=== PATIENT | female | born 1965 | race African-American/Black ===

== ENCOUNTER 2018-07-20 21:36 | Emergency (ER) | payer SELFPAY ==
[2018-07-20] MEDS ORDERED: Ibuprofen 800 MG TAB ONE (22:15)
--- NOTE | 2018-07-20 22:43 | RAD ---
TWO VIEWS OF THE LEFT FOREARM: 07/20/18 HISTORY: Left forearm injury. FINDINGS: There is no evidence of a fracture although there does appear to be slight irregularity involving the scaphoid bone, but this may be projectional in origin. No dislocation or other osseous abnormality i s seen. IMPRESSION: 1. Irregularity involving the scaphoid bone which is probably projectional, but if there is pain localized to the scaphoid bone, dedicated views of the left wrist are recommended. 2. No fracture or dislocation seen involving the left forearm. POS: [facility]
== END 2018-07-20 23:13 | disposition home or self-care (01) ==
LOC: ERS 21:36
DX: S63.502A Unspecified sprain of left wrist, initial encounter (principal); I10 Essential (primary) hypertension; F41.9 Anxiety disorder, unspecified; Z79.899 Other long term (current) drug therapy; W19.XXXA Unspecified fall, initial encounter

== ENCOUNTER 2019-11-02 09:08 | Outpatient (CLI) | payer OTHER ==
--- NOTE | 2019-11-02 13:38 | RAD ---
RADIOGRAPH LUMBAR SPINE 3 VIEWS: DATE: 11/02/2019 HISTORY: 54-year-old female with low back pain COMPARISON: None available FINDINGS: 3 lateral views in neutral, flexion, and extension. It will be assumed that there are 5 lumbar-type vertebrae. Greatest lordotic angulation is at L3-4 le jorge, where there is narrowing of the posterior aspect of the disc space but not the anterior aspect. Very mild grade 1 anterolisthesis of L4 on L5 during flexion and neutral, which reduces upon extension. Facet DJD at lower levels. No severe disc space narrowing at any level. IMPRESSION: 1) facet osteoarthrosis at lower levels. 2) very mild, minimally unstable grade 1 spondylolisthesis at L4-5. 3) the fulcrum of motion and greatest lordotic angulation, is at L3-4.
--- NOTE | 2019-11-02 14:25 | RAD ---
CERVICAL SPINE 4 VIEWS: Date: 11/02/19 HISTORY: Cervical radicular pain, flexion and extension. FINDINGS: 4 views of the cervical spine, including flexion and extension and standing lateral views are perform ed. T1 is somewhat obscured. Prominent anterior disc osteophytes at C4-C5, C5-C6, and C6-C7. No evide nce for abnormal malalignment. No abnormal translation between flexion and extension. No prevertebral soft tissue swelling. IMPRESSION: Extensive spondylosis, particularly at C4 through C6. POS: [facility]
== END 2019-11-02 09:09 | disposition home or self-care (01) ==
LOC: RAD 09:08
PROVIDERS: ATTEND Nurse Practitioner Family
DX: M47.22 Other spondylosis with radiculopathy, cervical region (principal); M54.5 Low back pain; M16.9 Osteoarthritis of hip, unspecified; M43.16 Spondylolisthesis, lumbar region
CPT/HCPCS: 72040; 72100

== ENCOUNTER 2021-11-23 15:36 | Emergency (ER) | payer OTHER ==
[2021-11-23 17:16] LABS: Bilirubin Negative (Negative); Blood, Urine 1+ (Negative); Clarity Turbid (Clear); Glucose, Urine (Dipstick) 70 mg/dL (Negative); Ketone, Urine Negative (Negative); Leukocyte 500 Leu/uL (Negative); Nitrite Negative (Negative); Protein, Urine (Dipstick) 30 mg/dL (Neg-Trace); Specific Gravity, Urine 1.022 (1.002-1.036); Squamous Epithelial 0-3 HPF (0-3); pH, Urine 5.5 (5.0-9.0)
[2021-11-23 17:30] LABS: WBC/HPF 21-50 HPF (0-3)
[2021-11-23 17:31] LABS: Bacteria/HPF 2+ HPF (None Seen); Calcium Oxalate Crystals 1+ HPF (None Seen); Yeast-Budding None Seen HPF (None Seen)
[2021-11-23 23:17] LABS: SARS-CoV-2 PCR by NAA Not Detected (NotDetected)
== END 2021-11-23 17:45 | disposition home or self-care (01) ==
LOC: ERS 15:36
DX: N30.01 Acute cystitis with hematuria (principal); Z20.822 Contact with and (suspected) exposure to COVID-19; I10 Essential (primary) hypertension
CPT/HCPCS: 81003; 81015; 87086; 99284; U0003; U0005

== ENCOUNTER 2023-02-13 22:03 | Inpatient (IN) | payer OTHER ==
[2023-02-14 00:25] LABS: Hemoglobin 13.7 g/dL (12.0-16.0); Mean Corpuscular HGB CONC 33.4 g/dL (32.0-36.0); Mean Corpuscular Hemoglobin 32.2 pg (27.0-31.0); Mean Corpuscular Volume 96.5 fl (78.0-98.0); Mean Platelet Volume 8.6 fL (7.4-10.4); Platelet Count 206 10x3/uL (130-400); RBC Distribution Width 11.7 % (11.5-14.5); Red Blood Cell (RBC) Count 4.26 mill/uL (4.20-5.40); White Blood Cell (WBC) Count 6.9 10x3/uL (4.8-10.8)
[2023-02-14 00:34] LABS: Eosinophils 1 % (0-10); Lymphocytes 56 % (21-51); MDiff Complete? YES; Monocytes 10 % (0-10); Neutrophil 33 % (42-75); Platelet Morphology Comment Appears Adequate; RBC Morphology Normal
[2023-02-14 00:35] LABS: ALT (SGPT) 10 U/L (8-55); AST (SGOT) 12 U/L (5-34); Albumin 4.1 g/dL (3.5-5.0); Alkaline Phosphatase 146 U/L (40-110); Anion Gap 10 mmol/L (10-20); BUN (Urea Nitrogen) 13 mg/dL (9.8-20.1); Bilirubin, Total 0.4 mg/dL (0.2-1.2); Calc. Creatinine Clearance 0 mL/min (70-130); Carbon Dioxide 27 mmol/L (22-29); Chloride 105 mmol/L (98-107); Estimated GFR 55; Globulin 3.2 g/dL (2.4-3.5); Glucose 207 mg/dL (70-105); Lipase 17 U/L (8-78); Magnesium 1.6 mg/dL (1.6-2.6); Potassium 3.3 mmol/L (3.5-5.1); Protein, Total 7.3 g/dL (6.0-8.3); Sodium 139 mmol/L (136-145)
[2023-02-14 00:43] LABS: Calcium 13.9 mg/dL (7.8-10.44)
[2023-02-14 02:42] LABS: Bilirubin Negative (Negative); Blood, Urine 1+ (Negative); Clarity Clear (Clear); Glucose, Urine (Dipstick) 150 mg/dL (Negative); Ketone, Urine Negative (Negative); Leukocyte 250 Leu/uL (Negative); Nitrite Negative (Negative); Protein, Urine (Dipstick) 10 mg/dL (Neg-Trace); Specific Gravity, Urine 1.048 (1.002-1.036); Urobilinogen Normal mg/dL (Less than 2)
[2023-02-14 02:54] LABS: Bacteria/HPF Rare-Few HPF (None Seen); RBC/HPF 0-3 HPF (0-3); Squamous Epithelial 0-3 HPF (0-3); WBC/HPF 0-3 HPF (0-3)
[2023-02-14] MEDS ORDERED: Calcitonin,Salmon,Synthetic 400 UNITS/2 ML SC SCH (03:00)
[2023-02-14] MEDS ORDERED: hydrALAZINE 25 MG TAB PO SCH (03:30)
[2023-02-14] MEDS ORDERED: Acetaminophen 325 MG TAB PO PRN (03:30)
[2023-02-14] MEDS ORDERED: Sodium Chloride 0.9% 1,000 ML IV SCH (03:30)
[2023-02-14 04:35] LABS: ALT (SGPT) 9 U/L (8-55); AST (SGOT) 12 U/L (5-34); Alkaline Phosphatase 136 U/L (40-110); Anion Gap 11 mmol/L (10-20); BUN (Urea Nitrogen) 11 mg/dL (9.8-20.1); Bilirubin, Total 0.4 mg/dL (0.2-1.2); Calc. Creatinine Clearance 0 mL/min (70-130); Carbon Dioxide 23 mmol/L (22-29); Chloride 105 mmol/L (98-107); Estimated GFR 67; Globulin 2.9 g/dL (2.4-3.5); Glucose 226 mg/dL (70-105); Potassium 3.1 mmol/L (3.5-5.1); Protein, Total 6.9 g/dL (6.0-8.3); Sodium 136 mmol/L (136-145)
[2023-02-14 04:39] LABS: Calcium 13.3 mg/dL (7.8-10.44)
[2023-02-14 04:56] LABS: Hemoglobin 13.3 g/dL (12.0-16.0); Lymphocytes 65 % (21-51); MDiff Complete? YES; Mean Corpuscular Hemoglobin 32.7 pg (27.0-31.0); Mean Corpuscular Volume 96.2 fl (78.0-98.0); Mean Platelet Volume 8.4 fL (7.4-10.4); Monocytes 3 % (0-10); Neutrophil 32 % (42-75); Platelet Count 173 10x3/uL (130-400); Platelet Morphology Comment Appears Adequate; RBC Distribution Width 11.7 % (11.5-14.5); RBC Morphology Normal; Red Blood Cell (RBC) Count 4.06 mill/uL (4.20-5.40); White Blood Cell (WBC) Count 6.5 10x3/uL (4.8-10.8)
[2023-02-14 06:41] VITALS: BMI 42.3
[2023-02-14] MEDS: hydrALAZINE 25 MG TAB PO SCH ×2 (06:46→17:28)
[2023-02-14] MEDS ORDERED: Electrolyte Replacement Protocol FS PRN (08:15)
[2023-02-14] MEDS ORDERED: Electrolyte Replacement Protocol 1 EACH FS SCH (08:15)
[2023-02-14] MEDS ORDERED: Potassium Chloride 20 MEQ TAB PO SCH ×2 (08:15→21:00)
[2023-02-14] MEDS: Aspirin Chewable 81 MG TAB PO SCH (10:08)
[2023-02-14] MEDS: Magnesium Oxide 400 MG TAB PO SCH (10:08)
[2023-02-14] MEDS: Amlodipine 10 MG TAB PO SCH (10:08)
[2023-02-14] MEDS: Lisinopril 10 MG TAB PO SCH (10:08)
[2023-02-14] MEDS: Famotidine 20 MG TAB PO SCH ×2 (10:08→21:46)
[2023-02-14] MEDS: glipiZIDE 5 MG TAB PO SCH ×2 (10:09→21:47)
[2023-02-14] MEDS: Heparin 5,000 UNITS/ML VIAL SC SCH ×3 (10:09→21:46)
[2023-02-14 11:06] LABS: Calcium 12.5 mg/dL (7.8-10.44)
[2023-02-14] MEDS ORDERED: Magnesium 2 GM/50 ML(in water) 2 GM in Premix Bag 1 BAG IVPB SCH (13:45)
[2023-02-14 13:46] LABS: Potassium 3.2 mmol/L (3.5-5.1)
[2023-02-14] MEDS ORDERED: Iopamidol-370 76% 500 ML MDV (1 ML CHARGE) ONE (14:42)
[2023-02-14] MEDS: Sodium Chloride 0.9% 1,000 ML IV SCH ×3 (14:47→22:15)
[2023-02-14] MEDS: Calcitonin,Salmon,Synthetic 400 UNITS/2 ML SC SCH (14:48)
[2023-02-14 17:06] LABS: Potassium 3.5 mmol/L (3.5-5.1)
[2023-02-14 17:11] LABS: Anion Gap 8 mmol/L (10-20); BUN (Urea Nitrogen) 8 mg/dL (9.8-20.1); Calc. Creatinine Clearance 144 mL/min (70-130); Carbon Dioxide 23 mmol/L (22-29); Chloride 109 mmol/L (98-107); Potassium 3.4 mmol/L (3.5-5.1); Sodium 137 mmol/L (136-145)
[2023-02-14 17:12] LABS: Calcium 11.9 mg/dL (7.8-10.44); Estimated GFR 78; Glucose 138 mg/dL (70-105)
[2023-02-15] MEDS: Sodium Chloride 0.9% 1,000 ML IV SCH ×4 (06:11→20:42)
[2023-02-15] MEDS: Ondansetron PF 4 MG/2 ML Vial IVP PRN (06:12)
[2023-02-15] MEDS: hydrALAZINE 25 MG TAB PO SCH ×2 (06:14→16:04)
[2023-02-15 06:28] LABS: #Lymphocytes 3.1 thou/uL (1.20-3.40); #Monocytes 0.5 thou/uL (0.11-0.59); #Neutrophils 2.7 thou/uL (1.40-6.50); %Basophils 0.7 % (0.0-1.0); %Eosinophils 0.4 % (0.0-10.0); %Lymphocytes 48.3 % (21.0-51.0); %Monocytes 8.4 % (0.0-10.0); %Neutrophils 42.2 % (42.0-75.0); Hemoglobin 13.8 g/dL (12.0-16.0); Mean Corpuscular HGB CONC 34.9 g/dL (32.0-36.0); Mean Corpuscular Hemoglobin 33.6 pg (27.0-31.0); Mean Corpuscular Volume 96.4 fl (78.0-98.0); Mean Platelet Volume 8.7 fL (7.4-10.4); Platelet Count 197 10x3/uL (130-400); RBC Distribution Width 11.7 % (11.5-14.5); White Blood Cell (WBC) Count 6.5 10x3/uL (4.8-10.8)
[2023-02-15 06:49] LABS: Anion Gap 10 mmol/L (10-20); BUN (Urea Nitrogen) 6 mg/dL (9.8-20.1); Calc. Creatinine Clearance 153 mL/min (70-130); Calcium 10.9 mg/dL (7.8-10.44); Carbon Dioxide 20 mmol/L (22-29); Chloride 112 mmol/L (98-107); Estimated GFR 84; Glucose 156 mg/dL (70-105); Potassium 3.6 mmol/L (3.5-5.1); Sodium 138 mmol/L (136-145)
[2023-02-15] MEDS: Magnesium Oxide 400 MG TAB PO SCH (09:50)
[2023-02-15] MEDS: Aspirin Chewable 81 MG TAB PO SCH (09:50)
[2023-02-15] MEDS: Lisinopril 10 MG TAB PO SCH (09:50)
[2023-02-15] MEDS: Famotidine 20 MG TAB PO SCH ×2 (09:50→20:42)
[2023-02-15] MEDS: Amlodipine 10 MG TAB PO SCH (09:51)
[2023-02-15] MEDS: Heparin 5,000 UNITS/ML VIAL SC SCH ×3 (09:51→20:43)
[2023-02-15] MEDS: Calcitonin,Salmon,Synthetic 400 UNITS/2 ML SC SCH (16:00)
[2023-02-15] MEDS: glipiZIDE 5 MG TAB PO SCH ×2 (17:12→20:42)
[2023-02-16 06:07] LABS: Anion Gap 9 mmol/L (10-20); BUN (Urea Nitrogen) 7 mg/dL (9.8-20.1); Calc. Creatinine Clearance 151 mL/min (70-130); Calcium 10.1 mg/dL (7.8-10.44); Carbon Dioxide 20 mmol/L (22-29); Chloride 112 mmol/L (98-107); Estimated GFR 82; Glucose 119 mg/dL (70-105); Potassium 3.4 mmol/L (3.5-5.1); Sodium 138 mmol/L (136-145)
[2023-02-16] MEDS: Sodium Chloride 0.9% 1,000 ML IV SCH ×3 (06:18→16:58)
[2023-02-16] MEDS: hydrALAZINE 25 MG TAB PO SCH ×2 (06:19→16:19)
[2023-02-16] MEDS ORDERED: Potassium Chloride 20 MEQ TAB PO SCH (08:00)
[2023-02-16] MEDS: Ondansetron PF 4 MG/2 ML Vial IVP PRN (08:37)
[2023-02-16] MEDS: Famotidine 20 MG TAB PO SCH (08:43)
[2023-02-16] MEDS: Aspirin Chewable 81 MG TAB PO SCH (08:43)
[2023-02-16] MEDS: Heparin 5,000 UNITS/ML VIAL SC SCH ×2 (08:43→16:04)
[2023-02-16] MEDS: Magnesium Oxide 400 MG TAB PO SCH (08:43)
[2023-02-16] MEDS: glipiZIDE 5 MG TAB PO SCH (08:43)
[2023-02-16] MEDS: Amlodipine 10 MG TAB PO SCH (10:14)
[2023-02-16] MEDS: Lisinopril 10 MG TAB PO SCH (10:15)
[2023-02-16] MEDS ORDERED: Lorazepam 2 MG/ML VIAL SLOW IVP SCH (12:15)
[2023-02-16 15:13] LABS: A/G Ratio 1.2 (0.7-1.7); Albumin 3.7 g/dL (2.9-4.4); Alpha 1 0.2 g/dL (0.0-0.4); Alpha 2 0.7 g/dL (0.4-1.0); Beta 1.2 g/dL (0.7-1.3); Gamma 0.9 g/dL (0.4-1.8); M-Spike Not Observed g/dL (Not Observed)
[2023-02-16] MEDS: Calcitonin,Salmon,Synthetic 400 UNITS/2 ML SC SCH (16:05)
[2023-02-16 18:20] VITALS: BP 147/88; TEMP 98.2
== END 2023-02-16 18:17 | disposition home or self-care (01) | DRG 644 ==
LOC: ERS 22:03 → SURG A 02-14 03:16
PROVIDERS: ADMIT Internal Medicine Nephrology; ATTEND Family Medicine
DX: E21.0 Primary hyperparathyroidism (principal); N17.9 Acute kidney failure, unspecified; Z68.41 Body mass index [BMI] 40.0-44.9, adult; I10 Essential (primary) hypertension; E11.9 Type 2 diabetes mellitus without complications; F41.9 Anxiety disorder, unspecified; E66.01 Morbid (severe) obesity due to excess calories; I48.91 Unspecified atrial fibrillation; K21.9 Gastro-esophageal reflux disease without esophagitis; E87.6 Hypokalemia; F40.240 Claustrophobia; D34 Benign neoplasm of thyroid gland; Z98.890 Other specified postprocedural states; Z90.49 Acquired absence of other specified parts of digestive tract; Z98.51 Tubal ligation status; Z79.82 Long term (current) use of aspirin; Z79.899 Other long term (current) drug therapy; Z90.710 Acquired absence of both cervix and uterus
CPT/HCPCS: 36415; 70492; 74177; 80048; 80053; 81003; 81015; 82306; 83690; 83735; 83970; 84155; 84165; 84478; 85025; 93005; 96361; 96365; 96372; J0630; J1644; J2405; J3475; J3489; J3490; J7050; Q9967